=== PATIENT | female | born 1950 | race Caucasian/White ===

== ENCOUNTER 2019-08-06 12:59 | Emergency (ER) | payer MEDICARE ==
[~2019-08-06] VITALS: Ht 154.9 cm; Wt 78.5 kg
--- OUTSIDE RECORDS SUMMARY | 2019-08-06 13:02 | XMS REPORT ---
[facility] Address Unknown Phone Unavailable Care Team Providers Care Voltmeter Operator Name Role Phone Unavailable Unavailable Payers Payer Name Policy Type Policy Number Effective Date Expiration Date Problems This patient has no known problems. Allergies, Adverse Reactions, Alerts Allergy Name Allergy Type Status Severity Reaction(s) Onset Date Inactive Date Treating Clinician Comments amoxicillin DA Active RI 2019-08-05 00:00:00 amoxicillin DA Active MO 2009-10-16 00:00:00 Medications This patient has no known medications. Results Test Description Test Time Test Comments Text Results Atomic Results Result Comments URINALYSIS COMPLETE 2019-08-05 06:44:00 UA COLOR (test code=COLU) Light-Yellow YELLOW UA APPEARANCE (test code=APPU) CLEAR CLEAR UA GLUCOSE DIPSTICK (test code=DGLUU) NEGATIVE mg/dL NEGATIVE UA BILIRUBIN DIPSTICK (test code=BILU) NEGATIVE mg/dL NEGATIVE UA KETONE DIPSTICK (test code=KETU) NEGATIVE mg/dL NEGATIVE UA SPECIFIC GRAVITY (test code=SGU) 1.015 1.001-1.035 UA BLOOD DIPSTICK (test code=EDIE) 0.03 mg/dL (Trace) mg/dL NEGATIVE UA PH DIPSTICK (test code=SURAJ) 5.0 5.0-8.0 UA PROTEIN DIPSTICK (test code=PROU) NEGATIVE mg/dL NEGATIVE UA UROBILINIOGEN DIPSTICK (test code=URO) Normal mg/dL NEGATIVE UA NITRITE DIPSTICK (test code=ALEK) NEGATIVE NEGATIVE UA LEUKOCYTE ESTERASE W REFLEX (test code=LEUUR) NEGATIVE Mesfin/uL NEGATIVE UA WBC (test code=WBCU) 0-5 per HPF 0-5 UA RBC (test code=RBCU) 0-2 #/HPF 0-5 UA EPITHELIAL CELLS (test code=EPIU) FEW per HPF FEW UA BACTERIA (test code=BACU) FEW #/HPF NONE UA HYALINE CAST (test code=HYALU) 0-2 #/LPF 0-5 Urine Source? Clean CatchCBC W/O [id number] 06:41:00* Test Item Value Reference Range Comments WHITE BLOOD CELL (test code=WBC) 7.0 K/mm3 4.5-12.5 RED BLOOD CELL (test code=RBC) 3.70 mill/mm3 3.7-5.2 HEMOGLOBIN (test code=HGB) 10.9 gram/dL 11.5-15.5 HEMATOCRIT (test code=HCT) 32.9 % 36.0-46.0 MEAN CELL VOLUME (test code=MCV) 88.9 fL 80-98 MEAN CELL HGB (test code=MCH) 29.5 picogram 27.0-33.0 MEAN CELL HGB CONCETRATION (test code=MCHC) 33.1 gram/dL 33.0-36.0 RED CELL DISTRIBUTION WIDTH (test code=RDW) 13.0 % 11.6-16.2 PLATELET COUNT (test code=PLT) 319 K/mm3 150-450 MEAN PLATELET VOLUME (test code=MPV) 9.9 fL 6.7-11.0 BASIC METABOLIC [id number] 06:21:00* Test Item Value Reference Range Comments SODIUM (test code=NA) 138 mmol/L 136-145 POTASSIUM (test code=K) 3.5 mmol/L 3.5-5.1 CHLORIDE (test code=CL) 103.0 mmol/L 98-107 CARBON DIOXIDE (test code=CO2) 28.0 mmol/L 21-32 ANION GAP (test code=GAP) 10.5 10-20 GLUCOSE (test code=GLU) 118 mg/dL 74-106 BLOOD UREA NITROGEN (test code=BUN) 27 mg/dL 7-18 GLOMERULAR FILTRATION RATE (test code=GFR) 55 mL/min >=60 Estimated GFR by using Modified MDRD formula.Chronic kidney disease is defined as either kidney damageor GFR <60 mL/min/1.73 m2 for >3 months. CREATININE (test code=CREAT) 1.00 mg/dL 0.55-1.02 Note change in reference range due to change in reagent. BUN/CREATININE RATIO (test code=BUN/CREA) 27.4 10-20 CALCIUM (test code=CA) 7.8 mg/dL 8.5-10.1 HEPATIC FUNCTION [id number] 06:21:00* Test Item Value Reference Range Comments TOTAL PROTEIN (test code=PROT) 6.7 gram/dL 6.4-8.2 ALBUMIN (test code=ALB) 2.9 g/dL 3.4-5.0 GLOBULIN (test code=GLOB) 3.8 gram/dL 2.7-4.2 ALBUMIN/GLOBULIN RATIO (test code=A/G) 0.8 0.75-1.50 BILIRUBIN TOTAL (test code=BILT) 0.30 mg/dL 0.0-1.0 BILIRUBIN DIRECT (test code=BILD) 0.07 mg/dL 0.0-0.20 SGOT/AST (test code=AST) 19 IUnit/L 15-37 SGPT/ALT (test code=ALT) 26 IUnit/L 12-78 ALKALINE PHOSPHATASE TOTAL (test code=ALKP) 84 IUnit/L 45-117 Note change in reference range due to change in reagent. [id number] 06:21:00* Test Item Value Reference Range Comments LIPASE (test code=LIP) 66 U/L 73.0-393.0 - US ABDOMEN [id number] 06:16:00 Name: BLESSINGDAVID A [facility] : 1950 Age/S: 69 / F [address] [facility] Unit #: [id number] Loc: F[place] [address] Phys: Haseeb Leyva DO Acct: [id number] Dis Date: Status: REG ER PHONE #: [phone] Exam Date: 08/05/2019 0549 FAX #: [phone] Reason: RUQ pain EXAMS: CPT CODE: [id number] US ABDOMEN LTD 26850 EXAM: - US ABDOMEN LTD HISTORY: Pain COMPARISON: None available time of interpretation. TECHNIQUE: Grayscale B-mode and color Doppler sonographic images of the right upper quadrant were obtained. FINDINGS: The gallbladder is contracted with no evidence of cholelithiasis. No significant gallbladder wall thickening or pericholecystic fluid. The common bile duct is within normal limits measuring 4 mm. Hepatopedal flow is present in main portal vein. No focal liver lesion is demonstrated. The visualized right kidney, IVC, and abdominal aorta show no significant abnormalities. The pancreas is obscured by overlying bowel gas. Limited exam. IMPRESSION: No significant abnormalities. at 0616 Reported and s igned by: Flako Lemon MD CC: Haseeb Leyva DO Technologist: KELSEY WHATLEY RDMS Trnscb Date/Time: 08/05/2019 (615) [email or web address] Orig Print D/T: S: 08/05/2019 (0619) Probe: PAGE 1 Signed Report BASIC METABOLIC PANEL 2019-08-05 06:14:00* Test Item Value Reference Range Comments SODIUM (test code=NA) 138 mmol/L 136-145 POTASSIUM (test code=K) 3.5 mmol/L 3.5-5.1 CHLORIDE (test code=CL) 103.0 mmol/L 98-107 CARBON DIOXIDE (test code=CO2) mmol/L 21-32 ANION GAP (test code=GAP) 10-20 GLUCOSE (test code=GLU) mg/dL 74-106 BLOOD UREA NITROGEN (test code=BUN) mg/dL 7-18 GLOMERULAR FILTRATION RATE (test code=GFR) mL/min >=60 CREATININE (test code=CREAT) mg/dL 0.55-1.02 BUN/CREATININE RATIO (test code=BUN/CREA) 10-20 CALCIUM (test code=CA) mg/dL 8.5-10.1 HEPATIC FUNCTION [id number] 06:14:00* Test Item Value Reference Range Comments TOTAL PROTEIN (test code=PROT) gram/dL 6.4-8.2 ALBUMIN (test code=ALB) g/dL 3.4-5.0 GLOBULIN (test code=GLOB) gram/dL 2.7-4.2 ALBUMIN/GLOBULIN RATIO (test code=A/G) 0.75-1.50 BILIRUBIN TOTAL (test code=BILT) mg/dL 0.0-1.0 BILIRUBIN DIRECT (test code=BILD) mg/dL 0.0-0.20 SGOT/AST (test code=AST) IUnit/L 15-37 SGPT/ALT (test code=ALT) IUnit/L 12-78 ALKALINE PHOSPHATASE TOTAL (test code=ALKP) IUnit/L 45-117 [id number] 06:14:00* Test Item Value Reference Range Comments LIPASE (test code=LIP) U/L 73.0-393.0
--- NOTE | 2019-08-06 14:36 | Diagnostic Imaging Report ---
EXAMINATION: Head and cervical spine CT without contrast. HISTORY: Status post fall, dizziness, nausea, headache. COMPARISON: None. TECHNIQUE: Multidetector axial images were obtained without contrast from the foramen magnum to the vertex and through the cervical spine. The images were reconstructed using brain and bone algorithms. Thin section brain images were reformatted into coronal and sagittal planes. Dose modulation, iterative reconstruction, and/or weight based adjustment of the mA/kV was utilized to reduce the radiation dose to as low as reasonably achievable. HEAD CT FINDINGS: Skull/scalp: No lytic or blastic lesions. No fractures. Parenchyma: Normal. No mass, hemorrhage or CT evidence of acute vascular insult. Brain volume: Normal for age. Ventricles: No hydrocephalus or displacement. Arteries: No density suggestive of thrombus. Dural sinuses: No abnormal density. Extra-axial spaces: No abnormal density. Foramen magnum: No mass, Chiari malformation, or basilar invagination. Sella: No obvious mass. Paranasal/mastoid sinuses: Imaged portions unremarkable. CERVICAL SPINE CT FINDINGS: Alignment:Normal alignment and lordosis. Soft tissues: Normal. Vertebrae: Normal height and density. No acute fracture, infection or neoplasm. Degenerative changes: C1-C2: Normal C2-C3: Facet arthrosis without spinal canal or foraminal stenosis. C3-C4: Prominent facet arthrosis minimally on the right with minimal anterolisthesis. No canal or foraminal stenoses. C4-C5: Mild facet arthrosis without stenoses C5-C6: Disc osteophyte compresses formation asymmetric to the left, uncovertebral and facet arthrosis minimally on the left. Moderate left foraminal stenoses. Fusion of the posterior elements mainly on the left side. C6-C7: Disc osteophyte formation, uncovertebral and facet arthrosis. Mild canal and mild to moderate foraminal stenosis. C7-T1: Normal IMPRESSION: Head CT: No acute intracranial abnormalities, particularly no posttraumatic hemorrhage. Cervical spine CT: 1. No acute fractures or dislocations. 2. Chronic degenerative changes as described. Note: Acute post traumatic spinal cord, vascular or ligamentous injury cannot adequately be assessed with CT. Signed by: Dr. lEi Woodall M.D. on 08/06/2019 2:33 PM
[2019-08-07] MEDS ORDERED: CLOPIDOGREL75 MG PO (21:34)
[2019-08-07] MEDS ORDERED: AMLODIPINE BESY10 MG PO (21:34)
[2019-08-07] MEDS ORDERED: HYDROCHLOROTH12.5 MG PO (21:34)
[2019-08-07] MEDS ORDERED: ATORVASTATIN CA20 MG PO (21:34)
[2019-08-07] MEDS ORDERED: DIOVAN HCT 3201 EAC1 PO (21:34)
[2019-08-07] MEDS ORDERED: ALENDRONATE SOD70 MG PO (21:34)
[2019-08-07] MEDS ORDERED: CLONIDINE HCL0.1 MG PO (21:34)
[2019-08-07] MEDS ORDERED: ACIPHEX20 MG PO (21:34)
[2019-08-07] MEDS ORDERED: FAMOTIDINE40 MG PO (22:37)
== END 2019-08-06 16:01 | disposition home or self-care (01) ==
LOC: ER 12:59
DX: S06.0X0A Concussion without loss of consciousness, initial encounter (principal); R51 Headache; W01.0XXA Fall on same level from slipping, tripping and stumbling without subsequent striking against object, initial encounter; Y92.008 Other place in unspecified non-institutional (private) residence as the place of occurrence of the external cause; Z86.73 Personal history of transient ischemic attack (TIA), and cerebral infarction without residual deficits
CPT/HCPCS: 70450; 72125; 99283

== ENCOUNTER 2019-08-07 18:19 | Inpatient (IN) | payer MEDICARE ==
[~2019-08-07] VITALS: Ht 154.9 cm; Wt 83.0 kg
[2019-08-07 19:33] LABS: BASOPHILS % 0.3 % (0.0-1.0); EOSINOPHILS # (AUTO) 0.1 (0.0-0.4); EOSINOPHILS % 0.8 % (0.0-6.0); HEMOGLOBIN 11.1 g/dL (12.0-16.0); LYMPHOCYTES # (AUTO) 1.7 (1.0-3.2); LYMPHOCYTES % 19.2 % (18.0-39.1); MEAN CORPUSCULAR HEMOGLOBIN 29.4 pg (28-32); MEAN CORPUSCULAR HGB CONC 33.6 g/dL (31-35); MEAN CORPUSCULAR VOLUME 87.3 fL (81-99); MONOCYTES # (AUTO) 1.3 (0.2-0.8); NEUTROPHILS # (AUTO) 5.6 (2.1-6.9); NEUTROPHILS % 64.2 % (38.7-80.0); PLATELET COUNT 328 x10e3/uL (140-360); RED BLOOD COUNT 3.78 x10e6/uL (3.6-5.1); RED CELL DISTRIBUTION WIDTH 12.8 % (11.7-14.4)
[2019-08-07 19:33] LABS: BILIRUBIN,URINE NEGATIVE (NEGATIVE); CLARITY,URINE CLEAR (CLEAR); COLOR,URINE YELLOW (YELLOW); KETONES,URINE NEGATIVE (NEGATIVE); LEUKOCYTE ESTERASE ,URINE NEGATIVE (NEGATIVE); NITRITE,URINE NEGATIVE (NEGATIVE); PROTEIN,URINE DIPSTICK NEGATIVE (NEGATIVE); URINE UROBILINOGEN 0.2 mg/dL (0.2 - 1)
[2019-08-07 19:43] LABS: INR 0.92; PROTHROMBIN TIME 12.9 seconds (11.9-14.5)
[2019-08-07 19:47] LABS: BACTERIA,URINE RARE /HPF; EPITHELIAL CELLS,URINE FEW /LPF; RBC,URINE 0-5 /HPF (0-5)
--- NOTE | 2019-08-07 20:02 | Diagnostic Imaging Report ---
Examination: Single AP view of the chest. COMPARISON: None. INDICATION: Chest pain DISCUSSION: Lines/tubes: None. Lungs: Pulmonary venous congestion. No edema. No pneumonia. Pleura: No pleural effusion or pneumothorax. Heart and mediastinum: Cardiomegaly. Bones and soft tissues: No acute bony abnormalities. IMPRESSION: Cardiomegaly with pulmonary venous congestion. Signed by: Dr. Familia Norwood M.D. on 08/07/2019 7:59 PM
[2019-08-07 20:10] LABS: INFLUENZAE A&B ANTIGEN (RAPID) NEGATIVE (NEGATIVE); STREPTOCOCCUS GRP A ANTIGEN NEGATIVE (NEGATIVE)
[2019-08-07 20:39] LABS: ALANINE AMINOTRANSFERASE 27 IU/L (0-55); ALBUMIN/GLOBULIN RATIO 0.8 (0.8-2.0); ALKALINE PHOSPHATASE 76 IU/L (40-150); ANION GAP 11.9 mmol/L (8-16); BLOOD UREA NITROGEN 10 mg/dL (7-26); BUN/CREATININE RATIO 11 (6-25); CALCIUM 8.9 mg/dL (8.4-10.2); CARBON DIOXIDE 33 mmol/L (22-29); CHLORIDE 93 mmol/L (98-107); CREATINE KINASE 216 IU/L (29-168); CREATININE, SERUM 0.87 mg/dL (0.57-1.11); EST GLOMERULAR FILTRATION RATE > 60 ML/MIN (60-); GLUCOSE 123 mg/dL (74-118); SODIUM 135 mmol/L (136-145)
[2019-08-07 20:43] LABS: POTASSIUM 2.9 mmol/L (3.5-5.1)
[2019-08-07] MEDS ORDERED: FUROSEMIDE INJ 10 MG/ML 4 ML VIAL IV ONE (21:00)
[2019-08-07] MEDS ORDERED: POTASSIUM CHLORIDE 20 MEQ TAB CR PO STA (21:17)
[2019-08-07] MEDS ORDERED: ATORVASTATIN CA20 MG PO (21:34)
[2019-08-07] MEDS ORDERED: ACIPHEX20 MG PO (21:34)
[2019-08-07] MEDS ORDERED: CLONIDINE HCL0.1 MG PO (21:34)
[2019-08-07] MEDS ORDERED: HYDROCHLOROTH12.5 MG PO (21:34)
[2019-08-07] MEDS ORDERED: ALENDRONATE SOD70 MG PO (21:34)
[2019-08-07] MEDS ORDERED: CLOPIDOGREL75 MG PO (21:34)
[2019-08-07] MEDS ORDERED: AMLODIPINE BESY10 MG PO (21:34)
[2019-08-07] MEDS ORDERED: DIOVAN HCT 3201 EAC1 PO (21:34)
--- NOTE | 2019-08-07 22:08 | Diagnostic Imaging Report ---
EXAMINATION: Head CT without contrast. HISTORY:Dizziness, history of prior stroke. COMPARISON:CT brain from 08/06/2019. TECHNIQUE: Multidetector axial images were obtained from the foramen magnum to the vertex without contrast. The images were reconstructed using brain and bone algorithms. Thin section brain images were reformatted into coronal and sagittal planes. Dose modulation, iterative reconstruction, and/or weight based adjustment of the mA/kV was utilized to reduce the radiation dose to as low as reasonably achievable. Intravenous contrast: None IMAGE QUALITY: Suboptimal evaluation due to motion artifacts particularly at the level of skull base and posterior fossa structures. FINDINGS: Skull/scalp: No lytic or blastic. lesions. No surgical changes. Incidental hyperostosis frontalis interna. Parenchyma: Nonspecific few, scattered supratentorial white matter hypodensity are likely related to small vessel ischemic changes. No acute hemorrhage, mass or acute major vascular territorial infarct. Arteries: No density suggestive of thrombosis. Dural sinuses: No abnormal density suggestive of thrombosis. Ventricles: No hydrocephalus or displacement. Extra-axial spaces: No abnormal density. Brain volume: Normal for age. Craniocervical junction: No mass, Chiari malformation, or basilar invagination. Sella: No mass. Paranasal/mastoid sinuses: Imaged portions unremarkable. IMPRESSION: No acute intracranial abnormality. Signed by: Dr. Margaret Samaniego M.D. on 08/07/2019 10:04 PM
[2019-08-07] MEDS ORDERED: SODIUM CHLORIDE 0.9% 50ML 50 ML ONE (22:14)
[2019-08-07] MEDS ORDERED: IOPAMIDOL 370 MG/ML 200 ML INFUS..BTL INJ ONE (22:14)
[2019-08-07] MEDS ORDERED: FAMOTIDINE40 MG PO (22:37)
--- NOTE | 2019-08-07 23:18 | Diagnostic Imaging Report ---
EXAM: CT Chest WITH contrast 08/07/2019 6:42 PM INDICATION: Chest pain. Shortness of breath. Concern for pulmonary embolism. COMPARISON: None TECHNIQUE: Chest was scanned utilizing a multidetector helical scanner from the lung apex through the level of the adrenal glands without administration of IV contrast. Coronal and sagittal reformations were obtained. Pulmonary embolism protocol was performed. IV CONTRAST: 100 cc Isovue-370 RADIATION DOSE: Total DLP: 517.82 mGy*cm Estimated effective dose: (DLP x 0.014 x size factor) mSv COMPLICATIONS: None FINDINGS: LINES/ TUBES: None. LUNGS AND AIRWAYS: Mild thickening of the pulmonary interstitium. Mild patchy groundglass density in the right apex laterally on image 15. Bibasilar subsegmental compressive atelectasis. Airways are normal. PLEURA: Bilateral small pleural effusions. No pneumothorax. HEART AND MEDIASTINUM: The thyroid gland is normal. Mildly prominent mediastinal lymph nodes likely reactive. No hilar or axillary lymphadenopathy. The heart is mildly enlarged. There is no pericardial effusion. There are mild atherosclerotic calcifications in the aorta and coronary arteries. The main pulmonary artery measures 2.5 cm in diameter, within normal limits. UPPER ABDOMEN: Limited non-contrast views of the upper abdomen show no acute abnormality. Hepatic steatosis and probable hepatomegaly. The adrenal glands are normal. BONES: The visualized bony thorax is within normal limits. SOFT TISSUES: Status post right mastectomy with diaphragm flattening reconstruction. Surgical clips in the axillary region bilaterally. IMPRESSION: 1. No evidence of pulmonary embolism. 2. Findings suggestive of interstitial pulmonary edema. 3. Patchy groundglass density in the right apex may represent developing pneumonia in the proper clinical setting. 4. Bilateral small pleural effusions and associated bibasilar compressive atelectasis. Signed by: Dr. Paulo Fraga M.D. on 08/07/2019 11:14 PM
[2019-08-08] VITALS (10 sets, daily range): BP systolic 111–152; BP diastolic 60–77
[2019-08-08] MEDS: POTASSIUM CHLORIDE 20 MEQ TAB CR PO SCH ×2 (01:16→05:09)
--- NOTE | 2019-08-08 06:25 | Diagnostic Imaging Report ---
Examination: Single AP view of the chest. COMPARISON: None. INDICATION: CHF. Hypoxia. Shortness of breath. DISCUSSION: Lines/tubes: None. Lungs: Pulmonary venous congestion. Bibasilar subsegmental atelectasis. Pleura: No pneumothorax. Bilateral small pleural effusions. Heart and mediastinum: Mild to moderate enlargement of the cardiac silhouette. Bones and soft tissues: No acute bony abnormalities. Degenerative changes in the thoracic spine. Multiple surgical clips projected on the axillary region bilaterally as well as lower right hemithorax, unchanged. IMPRESSION: Decompensated CHF: Cardiomegaly with pulmonary venous congestion. Signed by: Dr. Paulo Fraga M.D. on 08/08/2019 6:22 AM
[2019-08-08 06:44] LABS: CREATINE KINASE MB 0.9 ng/mL (0-5.0)
--- NOTE | 2019-08-08 07:00 | NUR ---
BEDSIDE SHIFT REPORT RECEIVED FROM THE NOZZLE WORKER RN. PT IS AAOX4. PT FAMILY AT BEDSIDE. EDUCATED PT ABOUT FALL PRECAUTIONS. PT VERBALIZED UNDERSTANDING. CALL LIGHT WITH IN EASY REACH. BED IS LOW AND LOCKED. SIDE RAILS X2. PT DENIES NEEDS AT THIS TIME.
[2019-08-08 07:06] LABS: BASOPHILS % 0.3 % (0.0-1.0); EOSINOPHILS # (AUTO) 0.1 (0.0-0.4); EOSINOPHILS % 1.5 % (0.0-6.0); HEMOGLOBIN 10.7 g/dL (12.0-16.0); LYMPHOCYTES # (AUTO) 1.6 (1.0-3.2); MEAN CORPUSCULAR HEMOGLOBIN 29.6 pg (28-32); MEAN CORPUSCULAR HGB CONC 33.4 g/dL (31-35); MEAN CORPUSCULAR VOLUME 88.6 fL (81-99); MONOCYTES % 14.8 % (4.4-11.3); NEUTROPHILS # (AUTO) 3.9 (2.1-6.9); NEUTROPHILS % 58.9 % (38.7-80.0); PLATELET COUNT 318 x10e3/uL (140-360); RED BLOOD COUNT 3.61 x10e6/uL (3.6-5.1); RED CELL DISTRIBUTION WIDTH 12.8 % (11.7-14.4)
[2019-08-08 07:15] LABS: ALANINE AMINOTRANSFERASE 21 IU/L (0-55); ALBUMIN 2.7 g/dL (3.5-5.0); ALBUMIN/GLOBULIN RATIO 0.8 (0.8-2.0); ALKALINE PHOSPHATASE 79 IU/L (40-150); ANION GAP 11.8 mmol/L (8-16); BLOOD UREA NITROGEN 8 mg/dL (7-26); BUN/CREATININE RATIO 11 (6-25); CALCIUM 8.4 mg/dL (8.4-10.2); CARBON DIOXIDE 31 mmol/L (22-29); CHLORIDE 96 mmol/L (98-107); CREATININE, SERUM 0.76 mg/dL (0.57-1.11); EST GLOMERULAR FILTRATION RATE > 60 ML/MIN (60-); GLUCOSE 102 mg/dL (74-118); POTASSIUM 3.8 mmol/L (3.5-5.1); SODIUM 135 mmol/L (136-145)
[2019-08-08] MEDS: ASPIRIN 81 MG ENTERIC COATED PO SCH (08:00)
[2019-08-08] MEDS: FUROSEMIDE INJ 10 MG/ML 4 ML VIAL IV SCH ×2 (08:00→16:49)
--- NOTE | 2019-08-08 08:58 | Consultation ---
DATE OF CONSULTATION: Cardiology Consult CHIEF COMPLAINT: The patient is a 69-year-old with shortness of breath. HISTORY OF PRESENT ILLNESS: The patient is a 69-year-old, who has been having worsening shortness of breath for 2 weeks and it has been markedly worse over the last 2 days. The patient says she cannot walk across the room without having extreme trouble breathing. The patient has had no nausea, no vomiting, no abdominal pain. No fevers. No chest pain. PAST MEDICAL HISTORY: Significant for: 1. Recent cerebrovascular accident versus transient ischemic attack about 3 months ago. The patient was started on Plavix. 2. History of hypertension. 3. History of osteoporosis. MEDICATIONS: The patient's has medication at her home include amlodipine, Plavix, AcipHex. SOCIAL HISTORY: The patient does not drink and does not smoke. FAMILY HISTORY: There is a known family history of coronary artery disease. PHYSICAL EXAMINATION: GENERAL: The patient is a well-developed, well-nourished female, in no obvious distress. VITAL SIGNS: Include a temperature of 98.8, blood pressure of 146/80, and pulse was 74. HEAD, EARS, EYES, NOSE, AND THROAT: The patient's cranium was normocephalic and atraumatic. Extraocular muscles were intact. Sclerae were anicteric. Pupils were equal, round, reactive to light. There is no pallor or cyanosis of the oral mucosa. There is no erythema or edema of the throat. NECK: Supple. No jugular venous distention. No carotid bruits. CHEST: Demonstrated rhonchi bilaterally. CARDIAC: Demonstrated normal S1 and S2 with a short 2/6 systolic murmur. ABDOMEN: Demonstrated good bowel sounds. No tenderness and no masses. EXTREMITIES: 1 to 2+ edema bilaterally. NEUROLOGIC: The patient was alert and oriented x3. Cranial nerves were intact. Motor strength was intact in all limbs. IMAGING STUDIES: The patient's EKG demonstrated normal sinus rhythm with nonspecific ST and T-wave changes. IMPRESSION: The patient is a 69-year-old with acute new onset diastolic heart failure. An echocardiogram was done demonstrating an ejection fraction of 16%. RECOMMENDATIONS: 1. The patient will need to be diuresed with IV Lasix. 2. The patient will require left heart catheterization to exclude ischemia as a cause of the diastolic heart failure. MD ELISA Dozier/DYLAN /[id number] cc: Kin Curry MD
[2019-08-08] MEDS ORDERED: AMLODIPINE BESYLATE 10 MG TAB PO SCH (09:00)
[2019-08-08] MEDS ORDERED: ALENDRONATE SODIUM 70 MG TAB PO SCH (09:00)
[2019-08-08] MEDS: ATORVASTATIN 20 MG TAB PO SCH (10:00)
[2019-08-08] MEDS: CLOPIDOGREL BISULFATE 75 MG TAB PO SCH (10:05)
[2019-08-08] MEDS: PANTOPRAZOLE SOD 40 MG TABEC PO SCH (10:06)
[2019-08-08] MEDS: LISINOPRIL 10 MG TAB PO SCH ×2 (11:15→16:50)
--- NOTE | 2019-08-08 12:40 | NUR ---
PT C/O NAUSEA. PAGED DR. MILLER. NEW ORDER RECEIVED.
[2019-08-08] MEDS: ONDANSETRON HCL INJ 2MG/ML 2ML 2 MG/ML VIAL IV PRN (13:01)
[2019-08-08 15:03] LABS: CREATINE KINASE MB 0.7 ng/mL (0-5.0)
--- NOTE | 2019-08-08 15:11 | History and Physical ---
CHIEF COMPLAINT: Congestive heart failure acute exacerbation with bilateral lower extremity edema. HISTORY OF PRESENT ILLNESS: This is a 69-year-old female, who has had worsening shortness of breath for the past 2 weeks, much worse for the past few days, which brought the patient to the hospital. She has pulmonary edema. The patient also has bilateral lower extremity edema as well. The patient is otherwise stable at this time. PAST MEDICAL HISTORY: TIA approximately 3 months ago. She was on Plavix. Hypertension and osteoarthritis. PAST SURGICAL HISTORY: Appendectomy, hysterectomy, and mastectomy. SOCIAL HISTORY: The patient does not smoke or use alcohol. No recreational drug use. FAMILY HISTORY: Does have coronary artery disease. ALLERGIES: NO KNOWN ALLERGIES. HOME MEDICATIONS: List will be reviewed. REVIEW OF SYSTEMS: Shortness of breath and lower extremity edema. PHYSICAL EXAMINATION: VITAL SIGNS: Temperature is 98, blood pressure 152/77, pulse rate 87, and respiration 22. GENERAL: The patient is not in acute distress. HEENT: Normocephalic and atraumatic. Pupils reactive. Anicteric. NECK: No JVD. PULMONARY: Bilateral rales at the bases. CARDIOVASCULAR: S1 and S2. Regular rate and rhythm. ABDOMEN: Soft and obese. EXTREMITIES: 2+ edema. NEUROLOGIC: No gross focal deficit. LABORATORY DATA: Sodium is 135, potassium 3.8, chloride 96, bicarb 31, BUN is 8, creatinine 0.7, and glucose 102. WBC 6.6, hemoglobin 10.8, hematocrit 32, and platelets 318. IMPRESSION: 1. Acute congestive heart failure. Echocardiogram still pending. 2. Morbid obesity. 3. Lower extremity edema, shortness of breath, and hypoxia. PLAN: Echocardiogram. Diuresis. Cardiac workup with Dr. Christoph Meeks. MD EDUARDO hZao/KYRAL /[id number]
--- NOTE | 2019-08-08 17:23 | NUR ---
Nutrition Screen Note RD Recommendation for Physician: - Continue current diet Plan of Care: RD following, monitoring for tolerance and adequacy - Diet education provided 08/08 Nutrition reason for involvement: Nutrition Risk Trigger- dx: new onset CHF Primary Diagnose(s):new onset CHF, hypokalemia, hypoxia PMH: CVA, HTN Ht: 61 in Wt: 195.56 lb BMI: 37 kg/m2 IBW: [address] Assessment: (08/08) 69 YOF admitted for new onset CHF, pt seen today per dx screen. Pt receptive to diet education at time of visit, family assisted in translation 2/ language barrier- pt is primarily Barbadian speaking. Pt with good appetite and intake. Noted K replaced. All questions and concerns addressed at time of visit. Chart reviewed. Labs and meds reviewed. Will monitor and continue to follow. Current Diet: Cardiac diet Malnutrition Evaluation (08/08) The patient does not meet criteria for a specified degree of malnutrition at this time. Will re-evaluate at follow-up as appropriate. Diet Education Needs Assessment: Diet education indicated, pt receptive Learner(s): pt and family members Barriers: language barrier Cultural/Language Modifications: handouts provided in Irish and Barbadian for pt and family, family translated information that pt did not understand during conversation regarding diet restrictions and recommendations Readiness: ready Method: handouts, discussion Topics: heart failure nutrition therapy, high Na foods to avoid, fluid sources, dining out Understanding/Compliance: good Nutrition Care Level: Low Signed: Heidi Rosas RD, LD, [facility]
--- NOTE | 2019-08-08 19:00 | NUR ---
BEDSIDE SHIFT REPORT GIVEN TO THE EMBALMER/FUNERAL DIRECTOR RN. PT DENIED FURTHER NEEDS.
[2019-08-09] VITALS (8 sets, daily range): BP systolic 114–144; BP diastolic 56–73
[2019-08-09 05:33] LABS: ANION GAP 13.7 mmol/L (8-16); CALCIUM 8.3 mg/dL (8.4-10.2); CREATININE, SERUM 0.99 mg/dL (0.57-1.11); POTASSIUM 3.7 mmol/L (3.5-5.1)
[2019-08-09 06:43] LABS: CHOL/HDL RATIO 2.5 (3.0-3.6)
[2019-08-09 07:08] LABS: THYROID STIMULATING HORMONE 3.583 uIU/mL (0.350-4.940)
[2019-08-09] MEDS: LISINOPRIL 10 MG TAB PO SCH ×2 (09:00→16:43)
[2019-08-09] MEDS: FUROSEMIDE INJ 10 MG/ML 4 ML VIAL IV SCH ×2 (10:50→16:42)
[2019-08-09] MEDS ORDERED: HEPARIN SOD (PORCINE) 1000 UNIT/ML 30ML ONE (11:56)
[2019-08-09] MEDS ORDERED: SODIUM CHLORIDE 0.9% 1000ML 1,000 ML ONE (11:57)
[2019-08-09] MEDS ORDERED: HEPARIN SOD/SOD CHLORIDE 2,000 ML ONE (11:57)
[2019-08-09] MEDS ORDERED: MIDAZOLAM HCL 2 MG/2 ML VIAL ONE (11:57)
[2019-08-09] MEDS ORDERED: FENTANYL CITRATE/PF 100MCG/2 ML INJ ONE (11:57)
[2019-08-09] MEDS ORDERED: LIDOCAINE HCL 2% LOCAL 20 ML VIAL ONE (11:57)
[2019-08-09] MEDS ORDERED: IOPAMIDOL 370 MG/ML 200 ML INFUS..BTL INJ ONE ×2 (11:57→12:11)
--- NOTE | 2019-08-09 12:55 | NUR ---
back from procedure. Dressing to right groin clean, dry, and intact.
[2019-08-09] MEDS: ATORVASTATIN 20 MG TAB PO SCH (16:42)
[2019-08-09] MEDS: CLOPIDOGREL BISULFATE 75 MG TAB PO SCH (16:42)
[2019-08-09] MEDS: ASPIRIN 81 MG ENTERIC COATED PO SCH (16:42)
[2019-08-09] MEDS: PANTOPRAZOLE SOD 40 MG TABEC PO SCH (16:42)
[2019-08-09] MEDS: ONDANSETRON HCL INJ 2MG/ML 2ML 2 MG/ML VIAL IV PRN (16:59)
--- NOTE | 2019-08-09 17:36 | Operative Report ---
DATE OF PROCEDURE: SURGEON: Christoph Meeks MD PROCEDURE: Left heart catheterization. INDICATION: Coronary artery disease. POSTOPERATIVE DIAGNOSIS: Coronary artery disease. COMPLICATIONS: None. ANESTHESIA: Versed, fentanyl, and lidocaine. TECHNIQUE: The right groin was draped and prepped in the usual fashion. The area was anesthetized with lidocaine. Standard Seldinger technique was used to place a 6-[place]ank[place] sheath into the right femoral artery without difficulty. A JL4 catheter was used to selectively engage the left coronary artery. A 3DRC catheter was used to selectively engage the right coronary artery. A pigtail catheter was used to perform a left ventriculogram. A Mynx device was used for closure. There were no complications. RESULTS: As follows: 1. There is a normal left main trunk. 2. There is a large left anterior descending artery, which gave rise to a medium-sized diagonal branch. There was minimal disease in the left anterior descending artery and diagonal branch. 3. There was a medium-sized AV circumflex artery, which gave rise to a large bifurcating obtuse marginal branch. There was minimal disease in the circumflex system. 4. There was a large dominant right coronary artery with minimal disease. 5. There was normal left ventricular size and function with an ejection fraction of 60%. CONCLUSION: The patient has minimal coronary artery disease with normal left ventricular size and function, and an ejection fraction of 60%. Christoph Meeks MD DSH/MODL /[id number] cc: Kin Curry MD
--- NOTE | 2019-08-09 19:08 | NUR ---
Report given to oncoming nurse of patient's status. Resting in bed. NO s/s of acute distress noted. Respirations even and unlabored. Dressing to right groin clean, dry, and intact. Side railsx2, call light within reach, family at bedside.
[2019-08-10] VITALS (9 sets, daily range): BP systolic 114–145; BP diastolic 57–81
[2019-08-10 06:12] LABS: ANION GAP 13.7 mmol/L (8-16); CALCIUM 8.4 mg/dL (8.4-10.2); CREATININE, SERUM 0.98 mg/dL (0.57-1.11); POTASSIUM 3.7 mmol/L (3.5-5.1)
--- NOTE | 2019-08-10 07:00 | NUR ---
The pt. reports that she is no longer having the respiratory problems that she experienced during the night.
[2019-08-10] MEDS: PANTOPRAZOLE SOD 40 MG TABEC PO SCH (07:59)
[2019-08-10] MEDS: ATORVASTATIN 20 MG TAB PO SCH (08:55)
[2019-08-10] MEDS: ASPIRIN 81 MG ENTERIC COATED PO SCH (08:55)
[2019-08-10] MEDS: CLOPIDOGREL BISULFATE 75 MG TAB PO SCH (08:55)
[2019-08-10] MEDS: LISINOPRIL 10 MG TAB PO SCH (08:56)
[2019-08-10] MEDS: FUROSEMIDE INJ 10 MG/ML 4 ML VIAL IV SCH (08:58)
--- NOTE | 2019-08-10 14:46 | Consultation ---
DATE OF CONSULTATION: Pulmonary Consultation HISTORY OF PRESENT ILLNESS: Patient of Dr. Curry, Dr. Meeks, Dr. Newton. Charming 69-year-old woman with a history of hypertension, diastolic heart failure, admitted with fever and nonproductive cough, found to have a right upper lobe pneumonia, history of TIA in the past, history of hypertension, history of remote breast cancer over 20 years ago, treated with mastectomy of right breast and chemotherapy by Dr. Mason. She was born in [facility], lives in [facility] in [place]. She felt that she was doing better on valsartan; this had been changed to aspirin, hydrochlorothiazide, clonidine, and she was continued on Plavix. FAMILY HISTORY: Positive for coronary artery disease. SOCIAL HISTORY: She was born in [facility]. According to her , she has a history of loud snoring and apnea at night. Daytime hypersomnolence. PHYSICAL EXAMINATION: GENERAL: She is a well-developed sprightly white female, in no acute distress, looking her stated age. She states that she feels better. VITAL SIGNS: Temperature 98, pulse 88, respirations 18, and blood pressure 142/67. BREASTS: Right mastectomy scar. LUNGS: Diminished breath sounds in bases. HEART: Regular rhythm. ABDOMEN: Nontender. EXTREMITIES: Nonedematous. CURRENT MEDICATIONS: Include aspirin, Lipitor, Plavix, Lasix, lisinopril has been discontinued. She is on valsartan, Protonix. IMPRESSION: Diastolic heart failure, hypertension, noncritical coronary artery disease, obstructive sleep apnea. PLAN: Trial of CPAP therapy of diastolic heart failure as per Dr. Christoph Meeks. Thank you for this kind referral. MD DIONICIO Fuentes/KYRAL /[id number]
[2019-08-11 04:20] VITALS: BP 150/83
[2019-08-11] MEDS ORDERED: VALSARTAN 160 MG TAB PO SCH (06:00)
[2019-08-11] MEDS ORDERED: FUROSEMIDE INJ 10 MG/ML 4 ML VIAL IV SCH (06:00)
[2019-08-11 07:51] VITALS: BP 114/69
[2019-08-11] MEDS: ASPIRIN 81 MG ENTERIC COATED PO SCH (08:01)
[2019-08-11] MEDS: PANTOPRAZOLE SOD 40 MG TABEC PO SCH (08:01)
[2019-08-11] MEDS: ATORVASTATIN 20 MG TAB PO SCH (08:02)
--- NOTE | 2019-08-11 09:00 | NUR ---
Patient on room air SPO2 95%. Walked with patient SPO2 94% on room air. Denies sob
[2019-08-11] MEDS ORDERED: POTASSIUM CHLO10 ME1 PO (10:03)
[2019-08-11] MEDS ORDERED: LASIX40 MG PO (10:03)
[2019-08-11] MEDS ORDERED: TESSALON PERLE100 MG PO (10:04)
[2019-08-11] MEDS ORDERED: DIOVAN160 MG PO (10:04)
[2019-08-11] MEDS ORDERED: claritin PO (10:04)
[2019-08-11] MEDS ORDERED: LOPRESSOR25 MG PO (10:05)
--- NOTE | 2019-08-11 10:53 | NUR ---
Left AC IV discontinued. No signs of infiltration noted. 2x2 gauze and tape placed. Taken via wheelchair to personal car by PCT. Accompanied by and son. AAOX4 to time, person, place, situation. Respirations even and unlabored. O2 96% on room air. Discharge instructions, rx, and all personal belongings taken with patient.
--- NOTE | 2019-08-12 05:52 | Discharge Summary ---
PCP: Dr. Ritesh Newton. CONSULTANTS: 1. Dr. Christoph Milton. 2. Dr. Christoph Meeks. FINAL DIAGNOSES: 1. Acute diastolic dysfunction, congestive heart failure, associated with pulmonary congestion and pleural effusion, resolved. 2. Status post left heart catheterization. No significant coronary artery disease. No intervention. 3. Obesity with possible obstructive sleep apnea. 4. Hypertension. 5. Electrolyte disorder, corrected. DISCHARGE MEDICATIONS: Lasix 40 mg daily, potassium 10 mEq daily, Diovan HCT 320/25 mg daily, Claritin 10 mg daily, Tessalon Perles 100 mg q.6 p.r.n. for cough, Lopressor 25 mg b.i.d. Medication from home that the patient will stop including Norvasc, clonidine, HCTZ, Diovan HCT. The patient will resume her other usual home medications. SUMMARY: A 69-year-old female, came in with increasing shortness of breath, hypoxic, pulmonary congestion, lower extremity edema 2+. The patient was given diuretic. Echocardiogram showed ejection fraction 55%. Potassium replacement was done. The patient underwent cardiac catheterization done by Dr. Christoph Meeks. There were no significant coronary obstruction. The patient did not receive any intervention. She does have sleeping problems during the night, where she has some episode of hypoxia witnessed by her family. The patient was seen by Dr. Christoph Milton. CPAP trial. The patient is stable. She slept well. She is doing much better. The patient will need an outpatient sleep study and subsequent CPAP arrangement. Discussed with the patient at length. The patient will go home today. Follow up with primary care physician, Dr. Ritesh Newton, within a week. She is also to see Dr. Christoph Milton for sleep studies. MD EDUARDO Zhao/KYRAL /[id number]
--- NOTE | 2019-08-12 14:34 | NUR ---
Received sleep study order over the weekend. Spoke to Ivonne with sleep lab. States she has the order and will work on getting pt scheduled.
== END 2019-08-11 10:53 | disposition home or self-care (01) | DRG 286 ==
LOC: ER 18:19 → ERHOLD 08-08 00:13 → MED/SURG2 08-08 00:15
PROVIDERS: ADMIT Internal Medicine; ATTEND Internal Medicine
PROC: 4A023N7 Measurement of Cardiac Sampling and Pressure, Left Heart, Percutaneous Approach (ICD-10-PCS; principal; 2019-08-09)
PROC: B2111ZZ Fluoroscopy of Multiple Coronary Arteries using Low Osmolar Contrast (ICD-10-PCS; 2019-08-09)
PROC: B2151ZZ Fluoroscopy of Left Heart using Low Osmolar Contrast (ICD-10-PCS; 2019-08-09)
DX: I11.0 Hypertensive heart disease with heart failure (principal); I50.31 Acute diastolic (congestive) heart failure; E87.6 Hypokalemia; Z85.3 Personal history of malignant neoplasm of breast; Z86.73 Personal history of transient ischemic attack (TIA), and cerebral infarction without residual deficits; F41.9 Anxiety disorder, unspecified; K21.9 Gastro-esophageal reflux disease without esophagitis; Z82.49 Family history of ischemic heart disease and other diseases of the circulatory system; E66.01 Morbid (severe) obesity due to excess calories; R09.02 Hypoxemia; I25.10 Atherosclerotic heart disease of native coronary artery without angina pectoris; G47.33 Obstructive sleep apnea (adult) (pediatric); Z68.34 Body mass index [BMI] 34.0-34.9, adult
CPT/HCPCS: 36415; 36600; 70450; 71045; 71260; 80048; 80053; 80061; 81001; 82550; 82553; 83518; 83605; 83735; 83880; 84443; 84484; 85025; 85610; 85730; 87040; 87070; 87086; 87400; 93005; 93306; 93458; 99152; 99284; C1760; C1769; J1644; J1940; J2001; J2250; J2405; J3010; J7030; Q9967

== ENCOUNTER → 2020-04-09 | Outpatient (CLI) | payer MEDICARE ==
[~2020-04-09] MED LIST: ACIPHEX20 MG PO; ALENDRONATE SOD70 MG PO; AMLODIPINE BESY10 MG PO; ATORVASTATIN CA20 MG PO; ATORVASTATIN CA40 MG PO; CLONIDINE HCL0.1 MG PO; CLOPIDOGREL75 MG PO; DIOVAN HCT 3201 EAC1 PO; DIOVAN160 MG PO; FAMOTIDINE40 MG PO; HYDROCHLOROTH12.5 MG PO; LASIX40 MG PO; LOPRESSOR25 MG PO; OLMESARTAN MEDO40 MG PO; POTASSIUM CHLO10 ME1 PO; REGADENOSON 0.4 MG/5 ML SYR IV ONE; TESSALON PERLE100 MG PO; claritin PO
== END ==
LOC: NM 09:05
PROVIDERS: ATTEND Internal Medicine
DX: R07.9 Chest pain, unspecified (principal)
CPT/HCPCS: 78452; 93017; A9502

== ENCOUNTER 2020-10-20 09:28 | Emergency (ER) | payer MEDICARE, OTHER ==
[~2020-10-20] VITALS: Ht 154.9 cm; Wt 83.0 kg
[~2020-10-20 09:28] MED LIST changes: -REGADENOSON 0.4 MG/5 ML SYR IV ONE
[2020-10-20] MEDS ORDERED: ASPIRIN 81 MG CHEW TAB PO ONE (10:00)
[2020-10-20 10:01] LABS: BASOPHILS % 0.3 % (0.0-1.0); EOSINOPHILS # (AUTO) 0.1 (0.0-0.4); EOSINOPHILS % 1.4 % (0.0-6.0); HEMATOCRIT 37.8 % (34.2-44.1); HEMOGLOBIN 12.6 g/dL (12.0-16.0); LYMPHOCYTES # (AUTO) 1.5 (1.0-3.2); LYMPHOCYTES % 42.7 % (18.0-39.1); MEAN CORPUSCULAR HEMOGLOBIN 30.1 pg (28-32); MEAN CORPUSCULAR HGB CONC 33.3 g/dL (31-35); MEAN CORPUSCULAR VOLUME 90.2 fL (81-99); MONOCYTES # (AUTO) 0.5 (0.2-0.8); MONOCYTES % 14.1 % (4.4-11.3); NEUTROPHILS # (AUTO) 1.4 (2.1-6.9); NEUTROPHILS % 40.9 % (38.7-80.0); PLATELET COUNT 371 x10e3/uL (140-360); RED BLOOD COUNT 4.19 x10e6/uL (3.6-5.1)
[2020-10-20 10:28] LABS: ALANINE AMINOTRANSFERASE 30 IU/L (0-55); ALBUMIN 4.1 g/dL (3.5-5.0); ALBUMIN/GLOBULIN RATIO 1.2 (0.8-2.0); ALKALINE PHOSPHATASE 68 IU/L (40-150); ANION GAP 13.3 mmol/L (8-16); BLOOD UREA NITROGEN 14 mg/dL (7-26); BUN/CREATININE RATIO 16 (6-25); CALCIUM 9.2 mg/dL (8.4-10.2); CARBON DIOXIDE 26 mmol/L (22-29); CHLORIDE 103 mmol/L (98-107); CREATINE KINASE 76 IU/L (29-168); CREATININE, SERUM 0.89 mg/dL (0.57-1.11); EST GLOMERULAR FILTRATION RATE > 60 ML/MIN (60-); GLUCOSE 109 mg/dL (74-118); POTASSIUM 3.3 mmol/L (3.5-5.1); SODIUM 139 mmol/L (136-145)
[2020-10-20 11:08] VITALS: BP 153/67
== END 2020-10-20 11:20 | disposition home or self-care (01) ==
LOC: ER 09:35
DX: R00.2 Palpitations (principal); M79.606 Pain in leg, unspecified; I10 Essential (primary) hypertension; F41.9 Anxiety disorder, unspecified; K21.9 Gastro-esophageal reflux disease without esophagitis; Z85.3 Personal history of malignant neoplasm of breast; Z86.73 Personal history of transient ischemic attack (TIA), and cerebral infarction without residual deficits
CPT/HCPCS: 36415; 71045; 80053; 82550; 82553; 83880; 84484; 85025; 99284

== ENCOUNTER → 2021-03-02 | Outpatient (CLI) | payer OTHER ==
[~2021-03-02] MED LIST changes: +REGADENOSON 0.4 MG/5 ML SYR IV ONE
== END ==
LOC: NM 08:57
PROVIDERS: ATTEND Internal Medicine
DX: R07.9 Chest pain, unspecified (principal)
CPT/HCPCS: 78452; 93017; A9502; J2785

== ENCOUNTER 2022-11-22 12:57 | Emergency (ER) | payer OTHER ==
[~2022-11-22] VITALS: Ht 154.9 cm; Wt 83.0 kg
[~2022-11-22 12:57] MED LIST changes: -REGADENOSON 0.4 MG/5 ML SYR IV ONE
[2022-11-22] MEDS ORDERED: SODIUM CHLORIDE 0.9% 500ML 500 ML IV ONE (13:15)
[2022-11-22 13:31] LABS: BASOPHILS % 0.5 % (0.0-1.0); EOSINOPHILS % 0.7 % (0.0-6.0); HEMATOCRIT 44.3 % (34.2-44.1); HEMOGLOBIN 13.9 g/dL (12.0-16.0); LYMPHOCYTES # (AUTO) 1.9 (1.0-3.2); LYMPHOCYTES % 43.8 % (18.0-39.1); MEAN CORPUSCULAR HEMOGLOBIN 30.1 pg (28-32); MEAN CORPUSCULAR HGB CONC 31.4 g/dL (31-35); MEAN CORPUSCULAR VOLUME 95.9 fL (81-99); MONOCYTES # (AUTO) 0.4 (0.2-0.8); PLATELET COUNT 281 x10e3/uL (140-360); RED BLOOD COUNT 4.62 x10e6/uL (3.6-5.1); RED CELL DISTRIBUTION WIDTH 13.4 % (11.7-14.4)
[2022-11-22 13:42] LABS: INR 0.89; PROTHROMBIN TIME 12.3 seconds (11.9-14.5)
[2022-11-22 13:43] LABS: PARTIAL THROMBOPLASTIN TIME 24.7 seconds (23.8-35.5)
[2022-11-22 13:54] LABS: ALBUMIN 4.5 g/dL (3.5-5.0); ALBUMIN/GLOBULIN RATIO 1.3 (0.8-2.0); ANION GAP 16.5 mmol/L (8-16); CALCIUM 9.8 mg/dL (8.4-10.2); CREATINE KINASE MB 1.9 ng/mL (0-5.0); CREATININE, SERUM 1.06 mg/dL (0.57-1.11); MAGNESIUM 2.3 MG/DL (1.3-2.1); POTASSIUM 5.5 mmol/L (3.5-5.1)
== END 2022-11-22 15:53 | disposition home or self-care (01) ==
LOC: ER 13:04
DX: R42 Dizziness and giddiness (principal); R07.89 Other chest pain; I10 Essential (primary) hypertension; K21.9 Gastro-esophageal reflux disease without esophagitis; F41.9 Anxiety disorder, unspecified; Z86.73 Personal history of transient ischemic attack (TIA), and cerebral infarction without residual deficits; Z85.3 Personal history of malignant neoplasm of breast
CPT/HCPCS: 36415; 70450; 71045; 80053; 82550; 82553; 83735; 83880; 84484; 85025; 85610; 85730; 93005; 99284

== ENCOUNTER 2023-08-25 11:23 | Inpatient (IN) | payer MEDICARE ==
[~2023-08-25] VITALS: Ht 154.9 cm; Wt 65.8 kg
[2023-08-25] MEDS ORDERED: ONDANSETRON HCL INJ 2MG/ML 2ML 2 MG/ML VIAL IV STA (11:42)
[2023-08-25] MEDS ORDERED: MECLIZINE HCL 12.5 MG TAB PO ONE (11:45)
[2023-08-25] MEDS ORDERED: LACTATED RINGER'S 1,000 ML IV ONE (11:45)
[2023-08-25] MEDS ORDERED: DIAZEPAM INJ 5 MG/ML 2 ML IV ONE ×2 (12:45→14:00)
[2023-08-25 13:06] LABS: BASOPHILS % 0.3 % (0.0-1.0); EOSINOPHILS % 0.5 % (0.0-6.0); HEMATOCRIT 37.1 % (34.2-44.1); HEMOGLOBIN 12.4 g/dL (12.0-16.0); LYMPHOCYTES # (AUTO) 2.1 (1.0-3.2); LYMPHOCYTES % 28.2 % (18.0-39.1); MEAN CORPUSCULAR HEMOGLOBIN 30.2 pg (28-32); MEAN CORPUSCULAR HGB CONC 33.4 g/dL (31-35); MEAN CORPUSCULAR VOLUME 90.3 fL (81-99); MONOCYTES # (AUTO) 0.7 (0.2-0.8); MONOCYTES % 9.8 % (4.4-11.3); NEUTROPHILS # (AUTO) 4.5 (2.1-6.9); NEUTROPHILS % 60.1 % (38.7-80.0); PLATELET COUNT 347 x10e3/uL (140-360); RED BLOOD COUNT 4.11 x10e6/uL (3.6-5.1); RED CELL DISTRIBUTION WIDTH 14.4 % (11.7-14.4); WHITE BLOOD COUNT 7.45 x10e3/uL (4.8-10.8)
[2023-08-25 13:24] LABS: ALANINE AMINOTRANSFERASE 22 IU/L (0-55); ALBUMIN 3.7 g/dL (3.5-5.0); ALBUMIN/GLOBULIN RATIO 1.5 (0.8-2.0); ALKALINE PHOSPHATASE 56 IU/L (40-150); ANION GAP 15.7 mmol/L (8-16); BLOOD UREA NITROGEN 23 mg/dL (7-26); BUN/CREATININE RATIO 26 (6-25); CALCIUM 8.6 mg/dL (8.4-10.2); CARBON DIOXIDE 23 mmol/L (22-29); CHLORIDE 104 mmol/L (98-107); CREATINE KINASE 53 IU/L (29-168); CREATININE, SERUM 0.89 mg/dL (0.57-1.11); GLUCOSE 116 mg/dL (74-118); MAGNESIUM 2.1 MG/DL (1.3-2.1); POTASSIUM 4.7 mmol/L (3.5-5.1); SODIUM 138 mmol/L (136-145)
[2023-08-25 16:30] VITALS: BP 146/63; PULSE 82; RESP 20; TEMP 98.7; O2SAT 100
[2023-08-25 16:45] VITALS: BP 115/58; PULSE 82; RESP 19; TEMP 98; O2SAT 99
[2023-08-25] MEDS ORDERED: ZOLPIDEM TARTRAT5 MG PO (17:12)
[2023-08-25] MEDS ORDERED: MAGNESIUM OXID400 MG PO (17:12)
[2023-08-25] MEDS ORDERED: ATORVASTATIN CA20 MG PO (17:12)
[2023-08-25] MEDS ORDERED: ASPIRIN81 MG PO (17:12)
[2023-08-25] MEDS ORDERED: VESICARE5 MG PO (17:12)
[2023-08-25] MEDS: MAGNESIUM OXIDE 400 MG TAB PO SCH (18:37)
[2023-08-25] MEDS: MECLIZINE HCL 12.5 MG TAB PO PRN (20:25)
[2023-08-25] MEDS: ONDANSETRON HCL INJ 2MG/ML 2ML 2 MG/ML VIAL IV PRN (20:25)
[2023-08-25] MEDS: ACETAMINOPHEN 325 MG TAB PO PRN (20:26)
[2023-08-25 21:42] VITALS: BP 152/65; PULSE 80; RESP 18; TEMP 98.1
[2023-08-26] VITALS (8 sets, daily range): BP systolic 99–145; BP diastolic 57–71; PULSE 58–76; RESP 16–18; TEMP 97.8–98.7; O2SAT 96–100
[2023-08-26] MEDS: MECLIZINE HCL 12.5 MG TAB PO PRN (06:06)
[2023-08-26] MEDS: ONDANSETRON HCL INJ 2MG/ML 2ML 2 MG/ML VIAL IV PRN (06:07)
[2023-08-26 06:13] LABS: BASOPHILS % 0.2 % (0.0-1.0); EOSINOPHILS % 0.3 % (0.0-6.0); HEMATOCRIT 37.5 % (34.2-44.1); HEMOGLOBIN 12.6 g/dL (12.0-16.0); LYMPHOCYTES # (AUTO) 1.7 (1.0-3.2); LYMPHOCYTES % 27.3 % (18.0-39.1); MEAN CORPUSCULAR HEMOGLOBIN 29.9 pg (28-32); MEAN CORPUSCULAR HGB CONC 33.6 g/dL (31-35); MEAN CORPUSCULAR VOLUME 88.9 fL (81-99); MONOCYTES # (AUTO) 0.7 (0.2-0.8); MONOCYTES % 10.8 % (4.4-11.3); NEUTROPHILS # (AUTO) 3.8 (2.1-6.9); NEUTROPHILS % 60.9 % (38.7-80.0); PLATELET COUNT 331 x10e3/uL (140-360); RED BLOOD COUNT 4.22 x10e6/uL (3.6-5.1); RED CELL DISTRIBUTION WIDTH 14.1 % (11.7-14.4); WHITE BLOOD COUNT 6.27 x10e3/uL (4.8-10.8)
[2023-08-26 06:31] LABS: ANION GAP 12.9 mmol/L (8-16); CALCIUM 8.7 mg/dL (8.4-10.2); CREATININE, SERUM 0.81 mg/dL (0.57-1.11); MAGNESIUM 2.3 MG/DL (1.3-2.1); POTASSIUM 3.9 mmol/L (3.5-5.1)
[2023-08-26 06:59] LABS: THYROID STIMULATING HORMONE 0.655 uIU/mL (0.350-4.940)
[2023-08-26] MEDS: MAGNESIUM OXIDE 400 MG TAB PO SCH ×2 (09:31→17:22)
[2023-08-26] MEDS: FUROSEMIDE 40 MG TAB PO SCH (10:48)
[2023-08-26] MEDS: AMLODIPINE BESYLATE 10 MG TAB PO SCH (10:48)
[2023-08-26] MEDS: CLOPIDOGREL BISULFATE 75 MG TAB PO SCH (10:48)
[2023-08-26] MEDS: SOLIFENACIN SUCCINATE 5 MG TAB PO SCH (10:48)
[2023-08-26] MEDS: METOPROLOL TARTRATE 25 MG TAB PO SCH (10:49)
[2023-08-26] MEDS: ASPIRIN 81 MG CHEW TAB PO SCH (10:49)
[2023-08-26] MEDS ORDERED: BISACODYL 10 MG SUPP PR PRN (12:15)
[2023-08-26] MEDS ORDERED: BISACODYL 10 MG SUPP PR ONE (12:45)
[2023-08-26] MEDS: LUBIPROSTONE 24 MCG CAP PO SCH (13:19)
[2023-08-26] MEDS: ENOXAPARIN SOD INJ 40 MG/0.4 ML SYR SC SCH (17:22)
[2023-08-26] MEDS: ATORVASTATIN 40 MG TAB PO SCH (20:36)
[2023-08-26] MEDS: ZOLPIDEM TARTRATE 10 MG TAB PO SCH (20:36)
[2023-08-27] VITALS (7 sets, daily range): BP systolic 108–147; BP diastolic 50–66; PULSE 58–70; RESP 16–20; TEMP 97.2–99; O2SAT 96–100
[2023-08-27 05:37] LABS: BASOPHILS % 0.4 % (0.0-1.0); EOSINOPHILS # (AUTO) 0.1 (0.0-0.4); HEMATOCRIT 38.6 % (34.2-44.1); HEMOGLOBIN 12.9 g/dL (12.0-16.0); LYMPHOCYTES # (AUTO) 2.2 (1.0-3.2); LYMPHOCYTES % 42.3 % (18.0-39.1); MEAN CORPUSCULAR HEMOGLOBIN 30.4 pg (28-32); MEAN CORPUSCULAR HGB CONC 33.4 g/dL (31-35); MEAN CORPUSCULAR VOLUME 90.8 fL (81-99); MONOCYTES # (AUTO) 0.6 (0.2-0.8); MONOCYTES % 12.3 % (4.4-11.3); NEUTROPHILS # (AUTO) 2.2 (2.1-6.9); PLATELET COUNT 313 x10e3/uL (140-360); RED BLOOD COUNT 4.25 x10e6/uL (3.6-5.1); RED CELL DISTRIBUTION WIDTH 14.4 % (11.7-14.4); WHITE BLOOD COUNT 5.13 x10e3/uL (4.8-10.8)
[2023-08-27 06:36] LABS: ALBUMIN 3.4 g/dL (3.5-5.0); ALBUMIN/GLOBULIN RATIO 1.2 (0.8-2.0); ANION GAP 13.2 mmol/L (8-16); CALCIUM 8.4 mg/dL (8.4-10.2); CREATININE, SERUM 0.97 mg/dL (0.57-1.11); MAGNESIUM 2.1 MG/DL (1.3-2.1); POTASSIUM 4.2 mmol/L (3.5-5.1)
[2023-08-27] MEDS: CLOPIDOGREL BISULFATE 75 MG TAB PO SCH (09:15)
[2023-08-27] MEDS: MAGNESIUM OXIDE 400 MG TAB PO SCH ×2 (09:15→16:20)
[2023-08-27] MEDS: AMLODIPINE BESYLATE 10 MG TAB PO SCH (09:15)
[2023-08-27] MEDS: LUBIPROSTONE 24 MCG CAP PO SCH (09:16)
[2023-08-27] MEDS: METOPROLOL TARTRATE 25 MG TAB PO SCH ×2 (09:16→16:20)
[2023-08-27] MEDS: SOLIFENACIN SUCCINATE 5 MG TAB PO SCH (09:16)
[2023-08-27] MEDS: FUROSEMIDE 40 MG TAB PO SCH (09:16)
[2023-08-27] MEDS: ASPIRIN 81 MG CHEW TAB PO SCH (09:16)
[2023-08-27] MEDS ORDERED: SODIUM CHLORIDE 0.9% 500ML 500 ML IV ONE (12:15)
[2023-08-27] MEDS: ONDANSETRON HCL INJ 2MG/ML 2ML 2 MG/ML VIAL IV PRN (12:39)
[2023-08-27] MEDS: ENOXAPARIN SOD INJ 40 MG/0.4 ML SYR SC SCH (16:20)
[2023-08-27] MEDS: ZOLPIDEM TARTRATE 10 MG TAB PO SCH (21:06)
[2023-08-27] MEDS: ATORVASTATIN 40 MG TAB PO SCH (21:07)
[2023-08-27] MEDS: ACETAMINOPHEN 325 MG TAB PO PRN (23:09)
[2023-08-28] VITALS (7 sets, daily range): BP systolic 109–136; BP diastolic 38–67; PULSE 54–64; RESP 16–19; TEMP 97.8–98.1; O2SAT 96–100
[2023-08-28 05:40] LABS: BASOPHILS % 0.2 % (0.0-1.0); EOSINOPHILS # (AUTO) 0.1 (0.0-0.4); EOSINOPHILS % 1.2 % (0.0-6.0); HEMATOCRIT 34.7 % (34.2-44.1); HEMOGLOBIN 11.4 g/dL (12.0-16.0); LYMPHOCYTES # (AUTO) 2.3 (1.0-3.2); LYMPHOCYTES % 46.5 % (18.0-39.1); MEAN CORPUSCULAR HEMOGLOBIN 29.9 pg (28-32); MEAN CORPUSCULAR HGB CONC 32.9 g/dL (31-35); MEAN CORPUSCULAR VOLUME 91.1 fL (81-99); MONOCYTES # (AUTO) 0.5 (0.2-0.8); MONOCYTES % 9.9 % (4.4-11.3); PLATELET COUNT 290 x10e3/uL (140-360); RED BLOOD COUNT 3.81 x10e6/uL (3.6-5.1); RED CELL DISTRIBUTION WIDTH 14.1 % (11.7-14.4); WHITE BLOOD COUNT 4.86 x10e3/uL (4.8-10.8)
[2023-08-28 06:10] LABS: ALBUMIN/GLOBULIN RATIO 1.4 (0.8-2.0); ANION GAP 11.2 mmol/L (8-16); CALCIUM 8.2 mg/dL (8.4-10.2); MAGNESIUM 2.1 MG/DL (1.3-2.1); POTASSIUM 4.2 mmol/L (3.5-5.1)
[2023-08-28] MEDS: LUBIPROSTONE 24 MCG CAP PO SCH (08:50)
[2023-08-28] MEDS: ASPIRIN 81 MG CHEW TAB PO SCH (08:50)
[2023-08-28] MEDS: SOLIFENACIN SUCCINATE 5 MG TAB PO SCH (08:50)
[2023-08-28] MEDS: FUROSEMIDE 40 MG TAB PO SCH (08:51)
[2023-08-28] MEDS: MAGNESIUM OXIDE 400 MG TAB PO SCH ×2 (08:51→16:04)
[2023-08-28] MEDS: METOPROLOL TARTRATE 25 MG TAB PO SCH ×2 (08:51→16:05)
[2023-08-28] MEDS: CLOPIDOGREL BISULFATE 75 MG TAB PO SCH (08:51)
[2023-08-28] MEDS: AMLODIPINE BESYLATE 10 MG TAB PO SCH (08:51)
[2023-08-28] MEDS ORDERED: ONDANSETRON HCL 4 MG ORAL DISINTEGRATING TAB PO PRN (12:45)
[2023-08-28] MEDS: ENOXAPARIN SOD INJ 40 MG/0.4 ML SYR SC SCH (17:22)
[2023-08-28] MEDS: ZOLPIDEM TARTRATE 10 MG TAB PO SCH (21:03)
[2023-08-28] MEDS: ATORVASTATIN 40 MG TAB PO SCH (21:03)
[2023-08-29 00:45] VITALS: BP 155/66; PULSE 62; RESP 17; TEMP 97.7; O2SAT 98
[2023-08-29 04:56] VITALS: BP 133/62; PULSE 63; RESP 17; TEMP 97.8; O2SAT 97
[2023-08-29] MEDS ORDERED: MECLIZINE HCL12.5 MG PO (08:30)
[2023-08-29] MEDS ORDERED: ONDANSETRON ODT4 MG PO (08:30)
[2023-08-29] MEDS ORDERED: MAG-OXIDE400 MG PO (08:30)
[2023-08-29 08:41] VITALS: BP 129/55; PULSE 64; RESP 20; TEMP 97.4; O2SAT 100
[2023-08-29] MEDS ORDERED: CLOPIDOGREL75 MG PO (08:42)
[2023-08-29] MEDS ORDERED: ASPIRIN81 MG PO (08:42)
[2023-08-29] MEDS ORDERED: ATORVASTATIN CA20 MG PO (08:42)
[2023-08-29] MEDS: FUROSEMIDE 40 MG TAB PO SCH (08:45)
[2023-08-29] MEDS: LUBIPROSTONE 24 MCG CAP PO SCH (08:45)
[2023-08-29] MEDS: MAGNESIUM OXIDE 400 MG TAB PO SCH (08:45)
[2023-08-29] MEDS: METOPROLOL TARTRATE 25 MG TAB PO SCH (08:45)
[2023-08-29] MEDS: SOLIFENACIN SUCCINATE 5 MG TAB PO SCH (08:45)
[2023-08-29] MEDS: CLOPIDOGREL BISULFATE 75 MG TAB PO SCH (08:45)
[2023-08-29] MEDS: ASPIRIN 81 MG CHEW TAB PO SCH (08:46)
[2023-08-29] MEDS: AMLODIPINE BESYLATE 10 MG TAB PO SCH (08:47)
[2023-08-29 09:00] VITALS: BP 140/75; PULSE 66; RESP 20; TEMP 97.4; O2SAT 100
== END 2023-08-29 11:22 | disposition home or self-care (01) | DRG 65 ==
LOC: ER 11:34 → ERHOLD 13:46 → MED/SURG2 16:35 → OBSVTOIN 08-27 11:55
PROVIDERS: ADMIT Internal Medicine; ATTEND Internal Medicine
DX: I63.231 Cerebral infarction due to unspecified occlusion or stenosis of right carotid arteries (principal); I69.354 Hemiplegia and hemiparesis following cerebral infarction affecting left non-dominant side; I10 Essential (primary) hypertension; I25.10 Atherosclerotic heart disease of native coronary artery without angina pectoris; E78.00 Pure hypercholesterolemia, unspecified; F41.9 Anxiety disorder, unspecified; K21.9 Gastro-esophageal reflux disease without esophagitis; G62.9 Polyneuropathy, unspecified; H81.4 Vertigo of central origin; Z95.5 Presence of coronary angioplasty implant and graft; Z85.3 Personal history of malignant neoplasm of breast; Z79.899 Other long term (current) drug therapy; Z79.02 Long term (current) use of antithrombotics/antiplatelets; I69.398 Other sequelae of cerebral infarction; Z82.49 Family history of ischemic heart disease and other diseases of the circulatory system; Z90.11 Acquired absence of right breast and nipple; Z79.82 Long term (current) use of aspirin
CPT/HCPCS: 36415; 70450; 70544; 70547; 70551; 80048; 80053; 82550; 83735; 84443; 84484; 85025; 93306; 99284; G0378; J1650; J2405; J3360; J7040; U0002

== ENCOUNTER 2024-12-05 14:36 | Inpatient (IN) | payer MEDICARE ==
[~2024-12-05] VITALS: Ht 154.9 cm; Wt 68.9 kg
[~2024-12-05 14:36] MED LIST changes: +ASPIRIN81 MG PO; +MAG-OXIDE400 MG PO; +MAGNESIUM OXID400 MG PO; +MECLIZINE HCL12.5 MG PO; +ONDANSETRON ODT4 MG PO; +VESICARE5 MG PO; +ZOLPIDEM TARTRAT5 MG PO
[2024-12-05 15:25] LABS: BASOPHILS % 0.3 % (0.0-1.0); EOSINOPHILS % 1.1 % (0.0-6.0); HEMATOCRIT 38.7 % (34.2-44.1); HEMOGLOBIN 12.4 g/dL (12.0-16.0); LYMPHOCYTES # (AUTO) 1.6 (1.0-3.2); LYMPHOCYTES % 43.5 % (18.0-39.1); MEAN CORPUSCULAR HEMOGLOBIN 28.5 pg (28-32); MONOCYTES # (AUTO) 0.4 (0.2-0.8); NEUTROPHILS # (AUTO) 1.7 (2.1-6.9); NEUTROPHILS % 44.8 % (38.7-80.0); PLATELET COUNT 276 x10e3/uL (140-360); RED BLOOD COUNT 4.35 x10e6/uL (3.6-5.1); RED CELL DISTRIBUTION WIDTH 14.7 % (11.7-14.4)
[2024-12-05] MEDS ORDERED: SODIUM CHLORIDE FLUSH 10 ML SYR IV PRN (15:30)
[2024-12-05 15:52] LABS: ALBUMIN 4.3 g/dL (3.5-5.0); ALBUMIN/GLOBULIN RATIO 1.3 (0.8-2.0); ANION GAP 16.1 mmol/L (8-16); BILIRUBIN,TOTAL 0.3 mg/dL (0.2-1.2); CALCIUM 8.8 mg/dL (8.4-10.2); CREATININE, SERUM 1.54 mg/dL (0.57-1.11); POTASSIUM 4.1 mmol/L (3.5-5.1); TOTAL PROTEIN 7.6 g/dL (6.5-8.1)
[2024-12-05 15:57] LABS: TROPONIN I 0.002 ng/mL (0-0.300)
[2024-12-05] MEDS ORDERED: SODIUM CHLORIDE FLUSH 10 ML SYR INJ PRN (17:15)
[2024-12-05] MEDS ORDERED: ONDANSETRON HCL INJ 2MG/ML 2ML 2 MG/ML VIAL IV PRN (17:15)
[2024-12-05] MEDS ORDERED: SODIUM CHLORIDE 0.9% 1000ML 1,000 ML ONE (18:26)
[2024-12-05] MEDS: SODIUM CHLORIDE 0.9% 1000ML 1,000 ML IV ONE (18:33)
[2024-12-06] VITALS (7 sets, daily range): BP systolic 138–163; BP diastolic 60–91; PULSE 57–69; RESP 18–19; TEMP 97.3–98.1; O2SAT 98–100
[2024-12-06 02:03] LABS: BASOPHILS % 0.7 % (0.0-1.0); EOSINOPHILS # (AUTO) 0.1 (0.0-0.4); HEMATOCRIT 33.2 % (34.2-44.1); HEMOGLOBIN 10.7 g/dL (12.0-16.0); LYMPHOCYTES # (AUTO) 1.5 (1.0-3.2); LYMPHOCYTES % 49.7 % (18.0-39.1); MEAN CORPUSCULAR HEMOGLOBIN 28.2 pg (28-32); MEAN CORPUSCULAR HGB CONC 32.2 g/dL (31-35); MEAN CORPUSCULAR VOLUME 87.4 fL (81-99); MONOCYTES # (AUTO) 0.4 (0.2-0.8); MONOCYTES % 12.6 % (4.4-11.3); NEUTROPHILS # (AUTO) 1.1 (2.1-6.9); NEUTROPHILS % 34.7 % (38.7-80.0); PLATELET COUNT 224 x10e3/uL (140-360); RED CELL DISTRIBUTION WIDTH 14.6 % (11.7-14.4); WHITE BLOOD COUNT 3.02 x10e3/uL (4.8-10.8)
[2024-12-06 02:22] LABS: ALBUMIN 3.7 g/dL (3.5-5.0); ALBUMIN/GLOBULIN RATIO 1.4 (0.8-2.0); BILIRUBIN,TOTAL 0.3 mg/dL (0.2-1.2); CALCIUM 8.7 mg/dL (8.4-10.2); CREATINE KINASE 98 IU/L (29-168); CREATININE, SERUM 1.12 mg/dL (0.57-1.11); TOTAL PROTEIN 6.3 g/dL (6.5-8.1)
[2024-12-06 02:31] LABS: TROPONIN I < 0.001 ng/mL (0-0.300)
[2024-12-06] MEDS ORDERED: MECLIZINE HCL 12.5 MG TAB PO PRN (08:15)
[2024-12-06] MEDS: ASPIRIN 81 MG CHEW TAB PO SCH (09:00)
[2024-12-06 10:27] LABS: TROPONIN I 0.001 ng/mL (0-0.300)
[2024-12-06] MEDS ORDERED: LATANOPROST2.5 ML OP (12:16)
[2024-12-06] MEDS ORDERED: VISBIOME 112.51 EACH PO (12:16)
[2024-12-06] MEDS ORDERED: OMEPRAZOLE40 MG PO (12:16)
[2024-12-06] MEDS: ZOLPIDEM TARTRATE 5 MG TAB PO SCH (23:32)
[2024-12-06] MEDS: ATORVASTATIN 20 MG TAB PO SCH (23:32)
[2024-12-07] VITALS (10 sets, daily range): BP systolic 123–151; BP diastolic 51–73; PULSE 62–72; RESP 16–20; TEMP 97.2–98; O2SAT 96–100
[2024-12-07 06:26] LABS: TROPONIN I 0.002 ng/mL (0-0.300)
[2024-12-08] VITALS (8 sets, daily range): BP systolic 113–151; BP diastolic 51–73; PULSE 60–72; RESP 18–21; TEMP 97.3–98.1; O2SAT 98–100
[2024-12-08 10:51] LABS: CALCIUM 8.8 mg/dL (8.4-10.2); CREATININE, SERUM 0.88 mg/dL (0.57-1.11); MAGNESIUM 1.9 MG/DL (1.3-2.1); PHOSPHORUS 3.6 MG/DL (2.3-4.7)
[2024-12-09] VITALS: BP 146/68; PULSE 60; RESP 18; TEMP 97.6; O2SAT 98
[2024-12-09 04:00] VITALS: BP 136/72; PULSE 65; RESP 20; TEMP 97.9; O2SAT 99
[2024-12-09 05:05] LABS: BASOPHILS % 0.6 % (0.0-1.0); EOSINOPHILS # (AUTO) 0.1 (0.0-0.4); EOSINOPHILS % 2.6 % (0.0-6.0); HEMATOCRIT 37.7 % (34.2-44.1); HEMOGLOBIN 12.2 g/dL (12.0-16.0); LYMPHOCYTES # (AUTO) 1.6 (1.0-3.2); LYMPHOCYTES % 45.7 % (18.0-39.1); MEAN CORPUSCULAR HEMOGLOBIN 28.7 pg (28-32); MEAN CORPUSCULAR HGB CONC 32.4 g/dL (31-35); MEAN CORPUSCULAR VOLUME 88.7 fL (81-99); MONOCYTES # (AUTO) 0.4 (0.2-0.8); MONOCYTES % 11.7 % (4.4-11.3); NEUTROPHILS # (AUTO) 1.3 (2.1-6.9); NEUTROPHILS % 39.4 % (38.7-80.0); PLATELET COUNT 263 x10e3/uL (140-360); RED BLOOD COUNT 4.25 x10e6/uL (3.6-5.1); RED CELL DISTRIBUTION WIDTH 14.5 % (11.7-14.4); WHITE BLOOD COUNT 3.41 x10e3/uL (4.8-10.8)
[2024-12-09 05:31] LABS: ANION GAP 14.5 mmol/L (8-16); CALCIUM 8.7 mg/dL (8.4-10.2); CREATININE, SERUM 0.89 mg/dL (0.57-1.11); PHOSPHORUS 3.7 MG/DL (2.3-4.7); POTASSIUM 4.5 mmol/L (3.5-5.1)
[2024-12-09 09:19] VITALS: BP 136/72; PULSE 65; RESP 20; TEMP 97.9; O2SAT 99
[2024-12-09 09:22] VITALS: BP 122/51; PULSE 61; RESP 18; TEMP 97.6; O2SAT 98
[2024-12-09 16:05] VITALS: BP 144/72; PULSE 66; RESP 20; TEMP 98.2; O2SAT 99
[2024-12-09 20:00] VITALS: BP 168/75; PULSE 64; RESP 20; TEMP 98; O2SAT 100
[2024-12-10] VITALS (8 sets, daily range): BP systolic 130–151; BP diastolic 52–75; PULSE 63–72; RESP 17–19; TEMP 98–98.5; O2SAT 99–100
[2024-12-10 05:32] LABS: BASOPHILS % 0.5 % (0.0-1.0); EOSINOPHILS # (AUTO) 0.1 (0.0-0.4); HEMATOCRIT 34.9 % (34.2-44.1); HEMOGLOBIN 11.2 g/dL (12.0-16.0); LYMPHOCYTES # (AUTO) 1.6 (1.0-3.2); LYMPHOCYTES % 40.1 % (18.0-39.1); MEAN CORPUSCULAR HEMOGLOBIN 28.3 pg (28-32); MEAN CORPUSCULAR HGB CONC 32.1 g/dL (31-35); MEAN CORPUSCULAR VOLUME 88.1 fL (81-99); MONOCYTES # (AUTO) 0.4 (0.2-0.8); MONOCYTES % 10.8 % (4.4-11.3); NEUTROPHILS # (AUTO) 1.9 (2.1-6.9); NEUTROPHILS % 46.6 % (38.7-80.0); PLATELET COUNT 255 x10e3/uL (140-360); RED BLOOD COUNT 3.96 x10e6/uL (3.6-5.1); RED CELL DISTRIBUTION WIDTH 14.4 % (11.7-14.4); WHITE BLOOD COUNT 4.06 x10e3/uL (4.8-10.8)
[2024-12-10] MEDS ORDERED: IOPAMIDOL 370 MG/ML 100 ML INFUS..BTL INJ ONE (13:30)
[2024-12-10] MEDS ORDERED: SODIUM CHLORIDE 0.9% 100 ML ONE (13:30)
[2024-12-11] VITALS: BP 141/67; PULSE 72; RESP 18; TEMP 97.7; O2SAT 100
[2024-12-11] MEDS ORDERED: HYDRALAZINE HCL10 MG PO (07:48)
[2024-12-11 08:00] VITALS: BP 148/85; PULSE 73; RESP 18; TEMP 98; O2SAT 99
[2024-12-11] MEDS: HYDRALAZINE HCL 10 MG TAB PO SCH (09:17)
[2024-12-11 12:00] VITALS: BP 145/66; PULSE 60; RESP 18; TEMP 97.8; O2SAT 99
== END 2024-12-11 13:40 | disposition home or self-care (01) | DRG 309 ==
LOC: ER 15:12 → ERHOLD 17:08 → MED/SURG 12-06 07:36 → OBSVTOIN 12-07 12:43
PROVIDERS: ADMIT Internal Medicine; ATTEND Internal Medicine
DX: I44.2 Atrioventricular block, complete (principal); N17.9 Acute kidney failure, unspecified; R00.1 Bradycardia, unspecified; R42 Dizziness and giddiness; R55 Syncope and collapse; R07.89 Other chest pain; Z45.09 Encounter for adjustment and management of other cardiac device; Z95.818 Presence of other cardiac implants and grafts; I95.9 Hypotension, unspecified; D72.819 Decreased white blood cell count, unspecified; I11.0 Hypertensive heart disease with heart failure; I50.9 Heart failure, unspecified; I25.10 Atherosclerotic heart disease of native coronary artery without angina pectoris; Z95.5 Presence of coronary angioplasty implant and graft; I25.2 Old myocardial infarction; I65.21 Occlusion and stenosis of right carotid artery; I65.02 Occlusion and stenosis of left vertebral artery; K21.9 Gastro-esophageal reflux disease without esophagitis; F41.9 Anxiety disorder, unspecified; Z79.02 Long term (current) use of antithrombotics/antiplatelets; Z86.73 Personal history of transient ischemic attack (TIA), and cerebral infarction without residual deficits; Z85.3 Personal history of malignant neoplasm of breast; Z90.11 Acquired absence of right breast and nipple; Z79.899 Other long term (current) drug therapy; Z79.82 Long term (current) use of aspirin
CPT/HCPCS: 36415; 70498; 71045; 80048; 80053; 82550; 82948; 83735; 83880; 84100; 84484; 85025; 93005; 94760; 99284; G0378; J7030; J7050; Q9967